=== PATIENT | female | born 1945 | race African-American/Black ===

== ENCOUNTER 2016-10-14 07:16 | Day surgery (SDC) | payer MEDICARE, OTHER ==
--- NOTE | 2016-10-07 14:29 | HISTORY AND PHYSICAL E ---
History and Physical NAME: JAD KHAN : 1945 AGE: 71Y ADMITTED: 10/14/2016 ROOM: CHIEF COMPLAINT: Colon screening. HISTORY: The patient presents at this time for colon exam. PAST MEDICAL HISTORY: 1. Constipation. 2. Reflux. 3. Hypertension. 4. Arthritis. PAST SURGICAL HISTORY: Hysterectomy. MEDICATIONS: The patient takes: 1. Calcium. 2. Vitamins. 3. Baby aspirin. 4. Diovan. 5. Atenolol. PHYSICAL EXAMINATION: VITAL SIGNS: Blood pressure is 120/90, pulse 80, respirations are 20, temp is 98. HEAD, EYES, EARS, NOSE, THROAT: Normal. ABDOMEN: Soft. NEUROLOGIC: Exam negative. CONCLUSION: Colon screening. PLAN: Colonoscopy. Admit 10/14. DICTATING PHYSICIAN: ALONSO BEY M.D. [id number] PHY#: [id number] ID: [id number] JOB#: [id number] ACCT: [id number] cc:JT TAPIA M.D., MAHMOUD M.D. >
[~2016-10-14 07:16] MED LIST: EPINEPHRINE INJ 1 MG/10 ML DISP.SYRIN ONE; FENTANYL CITRATE INJ/PF 100 MCG/2 ML AMPUL ONE; FLUMAZENIL INJ 0.5 MG/5 ML VIAL IV ONE; GLUCAGON,HUMAN RECOMB 1 MG INJ ONE; GLYCOPYRROLATE INJ 0.4 MG/2 ML VIAL ONE; LIDOCAINE 2% JELLY 30 ML TUBE ONE; MIDAZOLAM 2 MG/2 ML INJ ONE; NALOXONE HCL INJ/PF 0.4 MG/1 ML SDV ONE; ONDANSETRON HCL INJ/PF 4 MG/2 ML SDV ONE
[2016-10-14 09:22] LABS: ABSOLUTE EOSINOPHILS # (AUTO) 0.1 10^3/uL (0.0-0.6); ABSOLUTE LYMPHOCYTES (AUTO) 1.8 10^3/uL (0.5-4.7); ABSOLUTE MONOCYTES (AUTO) 0.5 10^3/uL (0.1-1.4); BASOPHILS % (AUTO) 0.6 % (0-2); EOSINOPHILS % (AUTO) 1.9 % (0-6); HEMATOCRIT 34.6 % (36.0-47.0); HEMOGLOBIN 11.8 g/dL (12.0-15.5); HGB HCT DIFFERENCE 0.8; LYMPHOCYTES % (AUTO) 40.7 % (13-45); MEAN CORPUSCULAR HEMOGLOBIN 31.5 pg (27.0-33.4); MEAN CORPUSCULAR VOLUME 93 fl (80-97); MONOCYTES % (AUTO) 11.7 % (3-13); RED BLOOD COUNT 3.73 10^6/uL (3.72-5.28); RED CELL DISTRIBUTION WIDTH 13.3 % (11.5-14.0); SEGMENTED NEUTROPHILS % (AUTO) 45.1 % (42-78); WHITE BLOOD COUNT 4.5 10^3/uL (4.0-10.5)
[2016-10-14 09:24] VITALS: BP 134/59
--- NOTE | 2016-10-14 12:59 | DISCHARGE SUMMARY E ---
Discharge Summary NAME: JAD KHAN : 1945 AGE: 71Y ADMITTED: 10/14/2016 DISCHARGED: 10/14/2016 HISTORY: The patient is a 71-year-old female who underwent colon screening today that shows diminutive polyp in the rectosigmoid junction, resected with 2 biopsies with no difficulties. The patient is known to have hypertension and she does take bronchodilator Proventil. She is on Tenormin and Diovan. DISCHARGE PLAN: Soft, low residue diet 2 days. Baseline CBC. Awaiting biopsy results. Consideration followup colonoscopy in 5 to 10 years pending biopsy results. DICTATING PHYSICIAN: ALONSO BEY M.D. [id number] [facility]#: [id number] ID: [id number] JOB#: [id number] ACCT: [id number] cc:JT TAPIA M.D., MAHMOUD M.D. >
--- NOTE | 2016-10-14 13:00 | OPERATIVE REPORT E ---
Operative Report NAME: JAD KHAN : 1945 AGE: 71Y DATE OF SURGERY: 10/14/2016 ROOM: PREOPERATIVE DIAGNOSIS: COLON SCREENING. POSTOPERATIVE DIAGNOSIS: DIMINUTIVE 2 TO 3 MM POLYP IN THE SIGMOID REMOVED BY BIOPSY. RECOMMENDATIONS: Followup colonoscopy after 5 to 10 years pending biopsy results. SURGEON: ALONSO BEY M.D. PROCEDURE: Rectal exam; shows mild external hemorrhoids. Rectosigmoid junction; diminutive 2 to 3 mm polyp, removed by biopsy. Descending colon; normal. Transverse colon; normal. Ascending; cecum visualized thoroughly. The orifice of the appendix was visualized and was normal. Good prep, adequate visualization. Cecum and ascending; normal. Transverse colon; normal. Sigmoid as mentioned, 2 to 3 mm polyp removed by 2 biopsies. Mild external hemorrhoid. DISCHARGE PLAN: Soft, low residue diet for 2 days. Hold aspirin and nonsteroidals 5 days. Awaiting biopsy results, baseline CBC. Consideration followup colonoscopy in 5 to 10 years pending biopsy results. DICTATING PHYSICIAN: ALONSO BEY M.D. [id number] [id number] PHY#: [id number] ID: [id number] JOB#: [id number] ACCT: [id number] cc:JT TAPIA M.D., MAHMOUD M.D. >
--- NOTE | 2016-10-20 14:20 | DISCHARGE SUMMARY E ---
Discharge Summary NAME: JAD KHAN : 1945 AGE: 71Y ADMITTED: 10/14/2016 DISCHARGED: 10/14/2016 ADDENDUM FINAL DIAGNOSIS: Sigmoid polyp. MEDICATIONS: She is to continue the following medications. 1. Simvastatin. 2. Aspirin. 3. Continue Diovan. 4. Continue Norvasc. Again, the patient is advised to avoid heavy exertion and she can go back to work tomorrow. Avoid heavy lifting. Soft diet. Continue the blood pressure medications, and simvastatin, Diovan, and atenolol. Follow-up office visit in the next few days. PROCEDURE: Colonoscopy with biopsy. DICTATING PHYSICIAN: ALONSO BEY M.D. [id number] [id number] PHY#: [id number] ID: [id number] JOB#: [id number] ACCT: [id number] cc:JT TAPIA M.D., MAHMOUD M.D. >
== END 2016-10-14 09:27 | disposition home or self-care (01) ==
LOC: END 07:16
PROVIDERS: ATTEND Specialist
PROC: 0DBN8ZX Excision of Sigmoid Colon, Via Natural or Artificial Opening Endoscopic, Diagnostic (ICD-10-PCS; principal; 2016-10-14 08:00)
DX: D12.7 Benign neoplasm of rectosigmoid junction (principal); I10 Essential (primary) hypertension; M19.90 Unspecified osteoarthritis, unspecified site; K21.9 Gastro-esophageal reflux disease without esophagitis; K64.4 Residual hemorrhoidal skin tags; Z79.82 Long term (current) use of aspirin; Z79.51 Long term (current) use of inhaled steroids; Z79.899 Other long term (current) drug therapy
CPT/HCPCS: 45380; 36415; 85025; 88305 ×2; J2250; J3010; J1610; J0171; J2310; J2405; J3490